=== PATIENT | female | born 1940 | race Caucasian/White ===

== ENCOUNTER → 2017-01-13 | Outpatient (CLI) | payer MEDICARE, BC ==
[~2017-01-13] MED LIST: ACETAMINOPHEN PO; ALBUTEROL17 GM INH; AMBIEN PO; ARANESP; AZATHIOPRINE50 M1 PO; BACTRIM DS TABL1 TAB PO; BENADRYL PO; COLACE PO; CORRECTOL5 MG PO; CRESTOR5 MG PO; CYANOCOBAL1000 MCG/M INJ; CYCLOPHOSPHAMID PO; EFFEXOR XR PO; EFFEXOR XR75 MG PO; FERRO-TIME325 MG PO; FERROUS SULFATE PO; FISH OIL 1,001000 MG PO; FOLIC + B12 TAB1 TAB PO; FOLIC ACID PO; FOSAMAX PO; LASIX20 MG PO; LEVAQUIN PO; LISINOPRIL PO; MAG-OXIDE400 MG PO; MIRALAX255 GM PO; NEXIUM PO; NILSTAT PO; NORVASC PO; PEDIA-LAX400 MG PO; PREDNISONE PO; PROCRIT SUBQ; SOD BICARBONATE PO; SYNTHROID PO; SYNTHROID75 MCG PO; VITAMIN B12 SUBQ; WELCHOL625 MG PO; ZESTRIL2.5 MG PO
--- NOTE | ~2017-01-13 | TH ---
Unit #: [id number] #: [id number] Patient: HAROON CRUZ [id number] [facility]. [place], [place] [address] [id number] O MR#: [id number] NAME: HAROON CRUZ. : 1940 SEX: F STUDY DATE/TIME: 01/14/2017 UNIT: [facility] ROOM: STUDY DESCRIPTION: NUCLEAR STUDY Attending Physician: Rudy Noble M.D. Referring Physician: Rudy Noble M.D. Primary Care Physician: Freeman Allen M.D. CARDIOLOGY REPORT EXAM Nuclear Study INDICATION Chest discomfort, dyspnea, abnormal ECG for the diagnosis of obstructive coronary disease contributing to the patient's symptoms. SUMMARY The patient exercised on a Phillip protocol to maximal effort. No angina was noted. The patient completed 4 minutes 31 seconds of exercise. Heart rate increased from 71 to 133 (92%), and blood pressure increased 148/75 to 178/78. The resting ECG showed T-wave inversion in leads II, III, aVF, lead I, V4 through V6. With stress, there was 0.5 to [address] depression in these leads which were abnormal at rest. T-waves became pseudo normalized in lead II only. There were single PACs noted. Technetium-99 Cardiolite 9.87 and 30.8 mCi was injected at rest and stress respectively. Appropriate views were obtained. FINDINGS This study is adequate. There is no significant patient motion noted at rest or stress. There is no significant lung uptake, LV or RV enlargement. Summed stress scores is zero. Gated perfusion and wall motion analysis demonstrates normal wall motion throughout the myocardium with end-diastolic volume very small at 40 mL, ejection fraction greater than 65%. Perfusion images demonstrate normal perfusion throughout the myocardium both at rest and stress. IMPRESSION 1. Myocardial perfusion scan is normal. No ischemia or infarction. 2. Normal wall motion with excellent ejection fraction and normal LV size. Dictated by... Steve Laughlin M.D. Unit #: [id number] #: [id number] Patient: HAROON CRUZ JANE/melanie TD: 01/14/2017 19:02 JOB #: [id number] CARDIOLOGY REPORT Page 1 of 1 X Steve Laughlin MD CARDIOLOGY REPORT
== END | disposition home or self-care (01) ==
LOC: CNUC 08:18
DX: R94.31 Abnormal electrocardiogram [ECG] [EKG] (principal)
CPT/HCPCS: 78452; 93017; A9500